=== PATIENT | female | born 1970 | race Caucasian/White ===

== ENCOUNTER 2024-07-11 16:59 | Emergency (ER) | payer OTHER, MEDICARE, MEDICAID, SELFPAY ==
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
[2024-07-11 17:02] VITALS: BP 110/82; BP 119/70; PULSE 68; PULSE 70; RESP 16; TEMP 36.6; O2SAT 97; O2SAT 98; BMI 25.2
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
--- NOTE | 2024-07-11 18:48 | PC.NURSE ---
pt to CT at this time.
[2024-07-11 20:11] VITALS: BP 130/69; PULSE 57; RESP 18; TEMP 36.7; O2SAT 96
[2024-07-11 22:15] VITALS: BP 124/56; PULSE 58; RESP 18; TEMP 36.7; O2SAT 98
[2024-07-11 23:42] VITALS: BP 124/56; PULSE 58; RESP 18; TEMP 36.7; O2SAT 98
--- NOTE | 2024-07-11 23:42 | PC.NURSE ---
Pt a&ox3, no signs of distress. Pt denies pain at this time. Plan of care ongoing.
== END 2024-07-11 23:45 | disposition home or self-care (01) ==
PROVIDERS: Emergency Provider Internal Medicine
DX: S13.4XXA Sprain of ligaments of cervical spine, initial encounter (principal); M54.50 Low back pain, unspecified; M54.2 Cervicalgia; R51.9 Headache, unspecified; V43.52XA Car driver injured in collision with other type car in traffic accident, initial encounter; Y93.89 Activity, other specified; Y92.488 Other paved roadways as the place of occurrence of the external cause; Y99.8 Other external cause status
CPT/HCPCS: 70450; 72072; 72100; 72125; 99284